=== PATIENT | male | born 1960 | race Caucasian/White ===

== ENCOUNTER 2016-10-15 22:22 | Inpatient (IN) | payer OTHER ==
[~2016-10-15] VITALS: Ht 185.4 cm; Wt 96.5 kg
[~2016-10-15 22:22] MED LIST: AMBIEN5 MG PO; ASPIR-LOW81 MG PO; ASPIRIN EC325 MG PO; ASPIRIN325 MG PO; ATARAX,VISTARIL25 MG PO; AUGMENTIN875 MG PO; Ambien PO; Atarax,Vistaril PO; BACTRIM,SEPT1 TABLET PO; BENTYL10 MG PO; BUSPAR10 MG PO; BUTALB-APAP-CA1 EACH PO; Buspar PO; CARDIZEM CD,CA180 MG PO; CARDIZEM CD120 M1 PO; CARDIZEM CD120 MG PO; CHLORDIAZEPOXID25 MG PO; CITALOPRAM HBR20 M1 G-TUBE; CITALOPRAM HBR20 M1 PO; DAILY VALUE1 EACH PO; DAILY VITE1 EAC1 PO; DECADRON2 MG PO; DESYREL100 MG PO; DICYCLOMINE HCL10 MG PO; ENDOCET 5-3251 EACH PO; FIORICET,ESG1 TABLET PO; FOLIC ACID1 MG PO; GEMFIBROZIL600 MG PO; GLUCOPHAGE1000 MG PO; GLUCOPHAGE500 MG PO; HYDROCODON-ACE1 EAC7 PO; HYDROCODON-ACE1 EAC8 PO; IBUPROFEN800 MG PO; K-DUR20 MEQ PO; KEFLEX500 MG PO; LIBRIUM10 MG PO; LIBRIUM25 MG PO; LISINOPRIL5 MG PO; LITHATE5 MG PO; LITHIUM CARBON300 M1 PO; LITHIUM CARBON300 M2 PO; LO-DOSE ASPIRIN81 M1 PO; LOPID600 MG PO; LOPRESSOR100 M1 PO; LOPRESSOR25 MG PO; LORTAB 5-325 M1 EACH PO; LOVENOX40 MG/0.4 SC; MAXIPIME2 GM IM; METFORMIN HCL1000 MG PO; METOPROLOL SUCC25 MG PO; METOPROLOL SUCC50 MG PO; METOPROLOL TART25 MG PO; NAPROSYN250 MG PO; NAPROSYN500 MG PO; NO HOME MEDS; NOHOMEMEDS; OMEPRAZOLE40 M1 PO; PANTOPRAZOLE SO40 MG PO; PRAVASTATIN SOD40 MG PO; PRILOSEC40 MG PO; PROTONIX40 MG PO; Pepcid PO; RISPERDAL1 MG PO; ROCEPHIN2 GM/50 ML IV; SEROQUEL100 MG PO; SEROQUEL12.5 MG PO; SERTRALINE HCL100 MG PO; SERTRALINE HCL25 MG PO; SERTRALINE HCL50 MG PO; SUCRALFATE1 GM PO; SUCRALFATE1 GM/10 ML PO; THERAGRAN1 TABLET PO; THIAMINE HCL100 MG PO; TRAMADOL HCL50 MG PO; TRAZODONE HCL100 MG PO; TRAZODONE HCL50 MG PO; ULTRAM50 MG PO; VANCOMYCIN1 GM/150 M IV; VITAMIN B-1100 MG PO; ZANTAC150 M1 PO; ZANTAC150 MG PO; ZOFRAN ODT8 MG PO; ZOFRAN8 MG PO; ZOLOFT100 MG PO; ZOLOFT25 MG PO; ZOLPIDEM TARTRAT5 MG PO; celeXA PO
[2016-10-15 23:09] LABS: EOSINOPHIL COUNT 0.1 K/uL (0-0.3); HEMATOCRIT 40.2 % (38.0-50.0); IMMATURE GRANULOCYTE (%) 0.6 % (0.0-0.7); INSTRUMENT ABS NEUTROPHIL CT 1.7 K/uL; LYMPHOCYTE COUNT 2.7 K/uL (1.0-2.8); MCH 30.2 PG (29.0-34.0); MCHC 33.6 G/DL (30.0-36.0); MCV 89.9 FL (86-99); MEAN PLAT.VOLUME 9.1 uM^3 (9.0-12.4); MONOCYTE (%) 15.5 % (3-12); MONOCYTE COUNT 0.8 K/uL (0-0.8); NEUTROPHIL (%) 31.4 % (45-76); NEUTROPHIL COUNT 1.7 K/uL (1.8-6.4); PLATELET COUNT 164 K/uL (156-360); RBC DIS.WIDTH-CV 15.2 % (11.8-14.6); RBC DIS.WIDTH-SD 49.3 % (39-53); RED BLOOD COUNT 4.47 M/uL (4.00-5.50); WHITE BLOOD COUNT 5.2 K/uL (4.1-10.2)
[2016-10-15 23:19] LABS: CHLORIDE 113 mEq/L (99-109); POTASSIUM 3.2 mEq/L (3.7-5.4); SODIUM 149 mEq/L (136-147)
[2016-10-15 23:21] LABS: GLUCOSE 139 mg/dL (70-99)
[2016-10-15 23:22] LABS: ANION GAP 11 MEQ/L (2-14)
[2016-10-15 23:24] LABS: SERUM ETHYL ALCOHOL 464 mg/dL
[2016-10-15 23:25] LABS: GFR ESTIMATE (CALCULATED) > 59 mL/min/
[2016-10-15 23:26] LABS: UREA NITROGEN (BUN) 8 mg/dL (9-23)
[2016-10-16 01:26] LABS: INTER. NORMALIZED RATIO 1.1; PROTHROMBIN TIME 11.5 (9.2-11.2); PTT 26.2 (25-32)
[2016-10-16 03:02] VITALS: BP 179/85
[2016-10-16 03:15] VITALS: BP 142/90
[2016-10-16 08:27] VITALS: BP 137/83
[2016-10-16 12:08] VITALS: BP 143/84
[2016-10-16 16:22] VITALS: BP 152/91
[2016-10-16] MEDS ORDERED: QUETIAPINE FUM100 MG PO (18:55)
[2016-10-16] MEDS ORDERED: SERTRALINE HCL100 MG PO (18:55)
[2016-10-16] MEDS ORDERED: METOPROLOL SUCC50 MG PO (18:56)
[2016-10-16] MEDS ORDERED: ASPIR 8181 M1 PO (18:56)
[2016-10-16 19:54] VITALS: BP 136/69
[2016-10-17 00:22] VITALS: BP 153/82
[2016-10-17 00:40] VITALS: BP 153/82
[2016-10-17 04:47] VITALS: BP 178/95
[2016-10-17 05:22] LABS: MCH 30.1 PG (29.0-34.0); MCHC 33.1 G/DL (30.0-36.0); MCV 90.9 FL (86-99); PLATELET COUNT 169 K/uL (156-360); RBC DIS.WIDTH-CV 14.8 % (11.8-14.6); RBC DIS.WIDTH-SD 49.1 % (39-53); RED BLOOD COUNT 3.96 M/uL (4.00-5.50); WHITE BLOOD COUNT 4.8 K/uL (4.1-10.2)
[2016-10-17 05:49] VITALS: BP 162/90
[2016-10-17 05:52] LABS: ALKALINE PHOSPHATASE 74 IU/L (3-129); ANION GAP 9 MEQ/L (2-14); CHLORIDE 112 MEQ/L (99-109); GFR ESTIMATE (CALCULATED) > 59 mL/min/; POTASSIUM 3.8 MEQ/L (3.7-5.4); SAMPLE HEMOLYSIS CHECK 0; SAMPLE ICTERIC CHECK 0; SAMPLE LIPEMIA CHECK 0; SODIUM 147 MEQ/L (136-147); TOTAL BILIRUBIN 0.5 MG/DL (0.0-1.0); UREA NITROGEN (BUN) 8 mg/dL (9-23)
[2016-10-17 05:59] LABS: GLUCOSE 78 mg/dL (70-99)
[2016-10-17 08:01] VITALS: BP 192/99
[2016-10-17 11:36] VITALS: BP 162/81
== END 2016-10-17 15:14 | disposition home or self-care (01) | DRG 87 ==
LOC: EDOF → EME 22:22 → 3EAST 10-16 01:37 → EDOF 10-16 01:37 → 3EAST 10-16 02:46
PROVIDERS: Emergency Medicine; Surgery
PROC: 0HQ1XZZ Repair Face Skin, External Approach (ICD-10-PCS; principal; 2016-10-16)
DX: S06.6X0A Traumatic subarachnoid hemorrhage without loss of consciousness, initial encounter (principal); S01.81XA Laceration without foreign body of other part of head, initial encounter; W07.XXXA Fall from chair, initial encounter; Y93.9 Activity, unspecified; Y92.9 Unspecified place or not applicable; Y99.8 Other external cause status; F10.129 Alcohol abuse with intoxication, unspecified; Y90.8 Blood alcohol level of 240 mg/100 ml or more; F12.10 Cannabis abuse, uncomplicated; I48.91 Unspecified atrial fibrillation; G31.89 Other specified degenerative diseases of nervous system; I10 Essential (primary) hypertension; F31.9 Bipolar disorder, unspecified; F41.9 Anxiety disorder, unspecified; Z59.0 Homelessness; Z82.49 Family history of ischemic heart disease and other diseases of the circulatory system; F17.200 Nicotine dependence, unspecified, uncomplicated
CPT/HCPCS: 70450; 72125; 73610; 80048; 80053; 85025; 85027; 85610; 85730; 94799; 99281; 99285; G0480; J1630; J2060; J3411; J3475; J7030; J7040; J7120

== ENCOUNTER 2016-12-04 10:05 | Inpatient (IN) | payer OTHER ==
[~2016-12-04] VITALS: Ht 190.5 cm; Wt 87.5 kg
[~2016-12-04 10:05] MED LIST changes: +ASPIR 8181 M1 PO; +QUETIAPINE FUM100 MG PO
[2016-12-04 10:52] LABS: CHLORIDE 71 mEq/L (99-109); POTASSIUM 2.8 mEq/L (3.7-5.4); SODIUM 133 mEq/L (136-147)
[2016-12-04 10:54] LABS: GLUCOSE 164 mg/dL (70-99)
[2016-12-04 10:55] LABS: ANION GAP 42 MEQ/L (2-14)
[2016-12-04 10:57] LABS: HEMATOCRIT 51.1 % (38.0-50.0); MCH 31.7 PG (29.0-34.0); MCHC 35.4 G/DL (30.0-36.0); MCV 89.5 FL (86-99); MEAN PLAT.VOLUME 11.2 uM^3 (9.0-12.4); NRBC (%) 0.1 /100 WBC (0-0); PLATELET COUNT 150 K/uL (156-360); RBC DIS.WIDTH-CV 14.1 % (11.8-14.6); RBC DIS.WIDTH-SD 46.2 % (39-53); RED BLOOD COUNT 5.71 M/uL (4.00-5.50); WHITE BLOOD COUNT 23.3 K/uL (4.1-10.2)
[2016-12-04 10:58] LABS: GFR ESTIMATE (CALCULATED) 37 mL/min/; UREA NITROGEN (BUN) 25 mg/dL (9-23)
[2016-12-04 11:06] LABS: TROP-I INTERPRETATION NEGATIVE; TROPONIN-I 0.04 ng/mL (0.0-0.30)
[2016-12-04] MEDS ORDERED: PROTONIX40 MG PO (12:12)
[2016-12-04] MEDS ORDERED: LO-DOSE ASPIRIN81 M2 PO (12:12)
[2016-12-04] MEDS ORDERED: VITAMIN B-1100 MG PO (12:12)
[2016-12-04] MEDS ORDERED: CARDIZEM CD,CA180 MG PO (12:12)
[2016-12-04] MEDS ORDERED: FOLIC ACID1 MG PO (12:12)
[2016-12-04] MEDS ORDERED: LIPITOR40 MG PO (12:13)
[2016-12-04] MEDS ORDERED: DAILY VALUE1 EACH PO (12:13)
[2016-12-04 13:19] LABS: MAGNESIUM 1.5 mg/dL (1.3-2.7)
[2016-12-04 13:23] LABS: SERUM ETHYL ALCOHOL < 10 mg/dL
[2016-12-04 13:30] VITALS: BP 136/80
[2016-12-04 13:33] LABS: TROP-I INTERPRETATION NEGATIVE; TROPONIN-I 0.03 ng/mL (0.0-0.30)
[2016-12-04 16:22] VITALS: BP 135/78
[2016-12-04 19:19] VITALS: BP 131/69
[2016-12-04 21:08] LABS: HEMATOCRIT 41.6 % (38.0-50.0); MCV 92.2 FL (86-99)
[2016-12-04 21:22] LABS: TROP-I INTERPRETATION NEGATIVE; TROPONIN-I 0.04 ng/mL (0.0-0.30)
[2016-12-04 23:24] VITALS: BP 118/68
[2016-12-05 04:10] VITALS: BP 134/77
[2016-12-05 06:05] LABS: HEMATOCRIT 39.2 % (38.0-50.0); MCH 33.3 PG (29.0-34.0); MCHC 35.5 G/DL (30.0-36.0); MCV 93.8 FL (86-99); RBC DIS.WIDTH-SD 48.2 % (39-53); WHITE BLOOD COUNT 11.6 K/uL (4.1-10.2)
[2016-12-05 06:10] LABS: RED BLOOD COUNT 4.18 M/uL (4.00-5.50)
[2016-12-05 06:18] LABS: ALKALINE PHOSPHATASE 55 IU/L (3-129); ANION GAP 15 MEQ/L (2-14); CHLORIDE 95 MEQ/L (99-109); POTASSIUM 2.9 MEQ/L (3.7-5.4); SAMPLE HEMOLYSIS CHECK 0; SAMPLE ICTERIC CHECK 0; SAMPLE LIPEMIA CHECK 0; SODIUM 138 MEQ/L (136-147); TOTAL BILIRUBIN 1.6 MG/DL (0.0-1.0); UREA NITROGEN (BUN) 12 mg/dL (9-23)
[2016-12-05 06:20] LABS: GFR ESTIMATE (CALCULATED) > 59 mL/min/; GLUCOSE 110 mg/dL (70-99)
[2016-12-05 07:19] LABS: MEAN PLAT.VOLUME 11.2 uM^3 (9.0-12.4); PLAT.SUFFICIENCY DECREASED; PLATELET COUNT 68 K/uL (156-360)
[2016-12-05 07:52] VITALS: BP 120/65
[2016-12-05 09:22] LABS: HEMATOCRIT 39.4 % (38.0-50.0); MCV 93.1 FL (86-99)
[2016-12-05 11:34] VITALS: BP 129/78
[2016-12-05 17:23] VITALS: BP 140/78
[2016-12-05 19:08] VITALS: BP 135/79
[2016-12-06] VITALS (7 sets, daily range): BP systolic 132–163; BP diastolic 62–98
[2016-12-06 05:37] LABS: ANION GAP 8 MEQ/L (2-14); CHLORIDE 101 MEQ/L (99-109); GFR ESTIMATE (CALCULATED) > 59 mL/min/; GLUCOSE 121 mg/dL (70-99); POTASSIUM 2.8 MEQ/L (3.7-5.4); SAMPLE HEMOLYSIS CHECK 0; SAMPLE ICTERIC CHECK 0; SAMPLE LIPEMIA CHECK 0; SODIUM 141 MEQ/L (136-147); UREA NITROGEN (BUN) 6 mg/dL (9-23)
[2016-12-06 06:30] LABS: EOSINOPHIL (%) 0.6 % (0-5); HEMATOCRIT 36.5 % (38.0-50.0); IMMATURE GRANULOCYTE (%) 0.4 % (0.0-0.7); LYMPHOCYTE COUNT 1.7 K/uL (1.0-2.8); MCH 31.4 PG (29.0-34.0); MCV 92.4 FL (86-99); MEAN PLAT.VOLUME 10.8 uM^3 (9.0-12.4); MONOCYTE (%) 5.7 % (3-12); MONOCYTE COUNT 0.4 K/uL (0-0.8); NEUTROPHIL (%) 69.3 % (45-76); PLATELET COUNT 75 K/uL (156-360); RBC DIS.WIDTH-CV 13.7 % (11.8-14.6); RBC DIS.WIDTH-SD 46.5 % (39-53); RED BLOOD COUNT 3.95 M/uL (4.00-5.50); WHITE BLOOD COUNT 7.2 K/uL (4.1-10.2)
[2016-12-07 00:10] VITALS: BP 141/86
[2016-12-07 05:19] VITALS: BP 130/71
[2016-12-07 05:55] LABS: EOSINOPHIL (%) 1.7 % (0-5); EOSINOPHIL COUNT 0.1 K/uL (0-0.3); HEMATOCRIT 39.2 % (38.0-50.0); IMMATURE GRANULOCYTE (%) 0.5 % (0.0-0.7); INSTRUMENT ABS NEUTROPHIL CT 3.8 K/uL; LYMPHOCYTE COUNT 2.1 K/uL (1.0-2.8); MCHC 33.4 G/DL (30.0-36.0); MCV 92.9 FL (86-99); MEAN PLAT.VOLUME 10.9 uM^3 (9.0-12.4); MONOCYTE (%) 9.2 % (3-12); MONOCYTE COUNT 0.6 K/uL (0-0.8); NEUTROPHIL (%) 57.4 % (45-76); NEUTROPHIL COUNT 3.8 K/uL (1.8-6.4); PLATELET COUNT 96 K/uL (156-360); RBC DIS.WIDTH-CV 13.7 % (11.8-14.6); RBC DIS.WIDTH-SD 46.3 % (39-53); RED BLOOD COUNT 4.22 M/uL (4.00-5.50); WHITE BLOOD COUNT 6.6 K/uL (4.1-10.2)
[2016-12-07 06:29] LABS: ANION GAP 9 MEQ/L (2-14); CHLORIDE 99 MEQ/L (99-109); GFR ESTIMATE (CALCULATED) > 59 mL/min/; GLUCOSE 126 mg/dL (70-99); POTASSIUM 3.7 MEQ/L (3.7-5.4); SAMPLE HEMOLYSIS CHECK 0; SAMPLE ICTERIC CHECK 0; SAMPLE LIPEMIA CHECK 0; SODIUM 138 MEQ/L (136-147); UREA NITROGEN (BUN) 6 mg/dL (9-23)
[2016-12-07 07:00] VITALS: BP 112/65
[2016-12-07 10:02] LABS: MAGNESIUM 1.3 mg/dl (1.3-2.7)
[2016-12-07 12:28] LABS: POINT-OF-CARE USER ID ENVKC36
[2016-12-07 13:23] VITALS: BP 155/87
[2016-12-07 15:51] LABS: POINT-OF-CARE METER ID UU13113698
[2016-12-07 17:29] VITALS: BP 121/81
[2016-12-07 20:28] LABS: POINT-OF-CARE METER ID UU13113698
[2016-12-07 20:59] VITALS: BP 118/78
[2016-12-08 00:42] VITALS: BP 110/69
[2016-12-08 06:11] LABS: EOSINOPHIL (%) 2.3 % (0-5); EOSINOPHIL COUNT 0.1 K/uL (0-0.3); HEMATOCRIT 41.2 % (38.0-50.0); IMMATURE GRANULOCYTE (%) 0.2 % (0.0-0.7); INSTRUMENT ABS NEUTROPHIL CT 2.8 K/uL; LYMPHOCYTE COUNT 1.6 K/uL (1.0-2.8); MCH 31.8 PG (29.0-34.0); MCV 93.6 FL (86-99); MEAN PLAT.VOLUME 10.6 uM^3 (9.0-12.4); MONOCYTE (%) 11.1 % (3-12); MONOCYTE COUNT 0.6 K/uL (0-0.8); NEUTROPHIL (%) 54.9 % (45-76); NEUTROPHIL COUNT 2.8 K/uL (1.8-6.4); RBC DIS.WIDTH-CV 13.9 % (11.8-14.6); RBC DIS.WIDTH-SD 47.8 % (39-53); WHITE BLOOD COUNT 5.2 K/uL (4.1-10.2)
[2016-12-08 06:25] LABS: PLATELET COUNT 131 K/uL (156-360)
[2016-12-08 06:43] LABS: ALKALINE PHOSPHATASE 55 IU/L (3-129); ANION GAP 8 MEQ/L (2-14); CHLORIDE 103 MEQ/L (99-109); GFR ESTIMATE (CALCULATED) > 59 mL/min/; GLUCOSE 135 mg/dL (70-99); SAMPLE HEMOLYSIS CHECK 0; SAMPLE ICTERIC CHECK 0; SAMPLE LIPEMIA CHECK 0; SODIUM 137 MEQ/L (136-147); UREA NITROGEN (BUN) 8 mg/dL (9-23)
[2016-12-08 06:46] LABS: TOTAL BILIRUBIN 0.6 MG/DL (0.0-1.0)
[2016-12-08 06:49] LABS: Estimated Average Glucose 111 mg/dL (70-123); HEMOGLOBIN A1c (GLYCOHEMOGLOB) 5.5 % HGB (Below 5.7)
[2016-12-08 07:00] VITALS: BP 129/88
[2016-12-08 07:46] LABS: POINT-OF-CARE METER ID UU13113781
== END 2016-12-08 09:30 | disposition home or self-care (01) | DRG 309 ==
LOC: EME 10:05 → EDOF 11:32 → 4EAST 11:32
PROVIDERS: Emergency Medicine; Hospitalist; Internal Medicine
DX: I48.0 Paroxysmal atrial fibrillation (principal); E86.0 Dehydration; N17.9 Acute kidney failure, unspecified; E87.6 Hypokalemia; E87.1 Hypo-osmolality and hyponatremia; F10.20 Alcohol dependence, uncomplicated; I10 Essential (primary) hypertension; I25.10 Atherosclerotic heart disease of native coronary artery without angina pectoris; D69.6 Thrombocytopenia, unspecified; E78.5 Hyperlipidemia, unspecified; E78.00 Pure hypercholesterolemia, unspecified; E11.9 Type 2 diabetes mellitus without complications; R29.6 Repeated falls; G89.29 Other chronic pain; F17.200 Nicotine dependence, unspecified, uncomplicated; Z91.14 Patient's other noncompliance with medication regimen; Z59.0 Homelessness; B18.2 Chronic viral hepatitis C; I35.0 Nonrheumatic aortic (valve) stenosis; K92.2 Gastrointestinal hemorrhage, unspecified
CPT/HCPCS: 70450; 71010; 80048; 80053; 81003; 82948; 83036; 83605; 83735; 84443; 84484; 85014; 85018; 85025; 85027; 87040; 93005; 93306; 99281; 99285; C9113; G0480; J1815; J2060; J2405; J2765; J3411; J3475; J7030; J7050

== ENCOUNTER 2017-01-01 23:45 | Emergency (ER) | payer OTHER ==
[~2017-01-01] VITALS: Ht 190.5 cm; Wt 90.0 kg
[~2017-01-01 23:45] MED LIST changes: +LIPITOR40 MG PO; +LO-DOSE ASPIRIN81 M2 PO
[2017-01-02 00:09] VITALS: BP 167/115
== END 2017-01-02 00:11 ==
LOC: EME 23:45
DX: F10.129 Alcohol abuse with intoxication, unspecified (principal); K21.9 Gastro-esophageal reflux disease without esophagitis; J45.909 Unspecified asthma, uncomplicated; I10 Essential (primary) hypertension; E78.5 Hyperlipidemia, unspecified; Z79.82 Long term (current) use of aspirin; Z87.891 Personal history of nicotine dependence
CPT/HCPCS: 99281; 99282

== ENCOUNTER 2017-02-02 22:34 | Emergency (ER) | payer OTHER ==
[~2017-02-02] VITALS: Ht 190.5 cm; Wt 85.6 kg
[2017-02-03 05:20] LABS: POINT-OF-CARE METER ID UU14100415
[2017-02-03 10:58] VITALS: BP 142/98
== END 2017-02-03 10:58 | disposition home or self-care (01) ==
LOC: EME 22:34
DX: F10.129 Alcohol abuse with intoxication, unspecified (principal); Y90.8 Blood alcohol level of 240 mg/100 ml or more; R45.851 Suicidal ideations; S09.90XA Unspecified injury of head, initial encounter; W19.XXXA Unspecified fall, initial encounter; B19.20 Unspecified viral hepatitis C without hepatic coma; K21.9 Gastro-esophageal reflux disease without esophagitis; I10 Essential (primary) hypertension; E78.5 Hyperlipidemia, unspecified; J45.909 Unspecified asthma, uncomplicated; Z79.82 Long term (current) use of aspirin; Z87.891 Personal history of nicotine dependence
CPT/HCPCS: 70450; 82948; 99281; 99285; G0480

== ENCOUNTER 2017-03-02 11:18 | Emergency (ER) | payer OTHER ==
[~2017-03-02] VITALS: Ht 190.5 cm; Wt 89.0 kg
[2017-03-02 12:17] LABS: HEMATOCRIT 47.9 % (38.0-50.0); MCH 31.6 PG (29.0-34.0); MCHC 34.2 G/DL (30.0-36.0); MCV 92.3 FL (86-99); MEAN PLAT.VOLUME 9.5 uM^3 (9.0-12.4); PLATELET COUNT 226 K/uL (156-360); RBC DIS.WIDTH-CV 14.8 % (11.8-14.6); RBC DIS.WIDTH-SD 50.8 % (39-53); RED BLOOD COUNT 5.19 M/uL (4.00-5.50); WHITE BLOOD COUNT 9.1 K/uL (4.1-10.2)
[2017-03-02 12:29] LABS: CHLORIDE 106 mEq/L (99-109); POTASSIUM 4.1 mEq/L (3.7-5.4); SODIUM 144 mEq/L (136-147)
[2017-03-02 12:31] LABS: GLUCOSE 143 mg/dL (70-99)
[2017-03-02 12:32] LABS: ANION GAP 18 MEQ/L (2-14)
[2017-03-02 12:33] LABS: TOTAL BILIRUBIN 0.8 mg/dL (0.0-1.0)
[2017-03-02 12:34] LABS: SERUM ETHYL ALCOHOL 370 mg/dL
[2017-03-02 12:35] LABS: ALKALINE PHOSPHATASE 81 IU/L (3-129); GFR ESTIMATE (CALCULATED) > 59 mL/min/
[2017-03-02 12:37] LABS: UREA NITROGEN (BUN) 7 mg/dL (9-23)
[2017-03-02 12:38] LABS: SALICYLATE < 5.0 MG/DL (15-30)
[2017-03-02 13:15] LABS: AMPHETAMINE NEGATIVE (500 ng/mL); BARBITURATES NEGATIVE (200 ng/mL); BENZODIAZEPINES NEGATIVE (150 ng/mL); COCAINE NEGATIVE (150 ng/mL); METHADONE NEGATIVE (200 ng/mL); METHAMPHETAMINE NEGATIVE (500 ng/mL); OPIATES (MORPHINE) NEGATIVE (100 ng/mL); OXYCODONE NEGATIVE (100 ng/mL); PHENCYCLIDINE NEGATIVE (25 ng/mL); PROPOXYPHENE NEGATIVE (300 ng/mL); THC CANNABINOIDS NEGATIVE (50 ng/mL); TRICYCLIC ANTIDEPRESSANTS NEGATIVE (300 ng/mL)
[2017-03-02 13:16] LABS: INTERNAL CONTROLS VALID? YES
[2017-03-02 19:38] VITALS: BP 150/99
== END 2017-03-02 19:40 | disposition home or self-care (01) ==
LOC: EME 11:18
PROVIDERS: Emergency Medicine
DX: F10.129 Alcohol abuse with intoxication, unspecified (principal); Y90.8 Blood alcohol level of 240 mg/100 ml or more; F32.9 Major depressive disorder, single episode, unspecified; R45.851 Suicidal ideations; K21.9 Gastro-esophageal reflux disease without esophagitis; J45.909 Unspecified asthma, uncomplicated; I10 Essential (primary) hypertension; E78.5 Hyperlipidemia, unspecified; F31.9 Bipolar disorder, unspecified; F41.9 Anxiety disorder, unspecified; B19.20 Unspecified viral hepatitis C without hepatic coma; Z87.891 Personal history of nicotine dependence; Z79.82 Long term (current) use of aspirin
CPT/HCPCS: 80053; 85027; 99281; 99285; G0480

== ENCOUNTER 2017-03-13 17:27 | Inpatient (IN) | payer OTHER ==
[~2017-03-13] VITALS: Ht 190.5 cm; Wt 99.9 kg
[2017-03-13 17:58] LABS: CREATININE 0.9 mg/dL (0.6-1.3); POTASSIUM 2.7 mEq/L (3.7-5.4)
[2017-03-13 18:03] LABS: HEMATOCRIT 38.6 % (38.0-50.0); MCH 32.2 PG (29.0-34.0); MCV 89.4 FL (86-99); MEAN PLAT.VOLUME 9.6 uM^3 (9.0-12.4); RBC DIS.WIDTH-CV 14.2 % (11.8-14.6); RBC DIS.WIDTH-SD 45.4 % (39-53); RED BLOOD COUNT 4.32 M/uL (4.00-5.50); WHITE BLOOD COUNT 21.7 K/uL (4.1-10.2)
[2017-03-13 18:04] LABS: PLATELET COUNT 299 K/uL (156-360)
[2017-03-13 18:05] LABS: CHLORIDE 80 mEq/L (99-109); SODIUM 132 mEq/L (136-147)
[2017-03-13 18:07] LABS: GLUCOSE 213 mg/dL (70-99)
[2017-03-13 18:08] LABS: ANION GAP 25 MEQ/L (2-14)
[2017-03-13 18:09] LABS: TOTAL BILIRUBIN 1.6 mg/dL (0.0-1.0)
[2017-03-13 18:10] LABS: SERUM ETHYL ALCOHOL 47 mg/dL
[2017-03-13 18:11] LABS: ALKALINE PHOSPHATASE 86 IU/L (3-129); GFR ESTIMATE (CALCULATED) > 59 mL/min/
[2017-03-13 18:12] LABS: UREA NITROGEN (BUN) 33 mg/dL (9-23)
[2017-03-13 18:14] LABS: CREATINE KINASE 341 IU/L (1-294)
[2017-03-13 18:30] LABS: AMPHETAMINE NEGATIVE (500 ng/mL); BARBITURATES NEGATIVE (200 ng/mL); BENZODIAZEPINES NEGATIVE (150 ng/mL); COCAINE NEGATIVE (150 ng/mL); INTERNAL CONTROLS VALID? YES; METHADONE NEGATIVE (200 ng/mL); METHAMPHETAMINE NEGATIVE (500 ng/mL); OPIATES (MORPHINE) NEGATIVE (100 ng/mL); OXYCODONE NEGATIVE (100 ng/mL); PHENCYCLIDINE NEGATIVE (25 ng/mL); PROPOXYPHENE NEGATIVE (300 ng/mL); THC CANNABINOIDS NEGATIVE (50 ng/mL); TRICYCLIC ANTIDEPRESSANTS NEGATIVE (300 ng/mL)
[2017-03-13 18:35] LABS: ADD MIUA? YES; BILIRUBIN NEGATIVE; BLOOD MODERATE; COLOR AMBER ((YELLOW)); GLUCOSE (STRIP) >=500; KETONES 20; LEUKOCYTES NEGATIVE; NITRITE NEGATIVE; PROTEIN (STRIP) 100; SPECIFIC GRAVITY 1.021 (1.000-1.030)
[2017-03-13 18:45] LABS: BACTERIA NONE SEEN /HPF; EPITHELIAL CELLS NONE SEEN /HPF; HYALINE CASTS 0-5 /LPF; MUCUS TRACE /LPF; RED BLOOD CELLS 0-5 /HPF (0-5); UCUL ADDED? NO; WHITE BLOOD CELLS 0-5 /HPF (0-5)
[2017-03-13] MEDS ORDERED: NALTREXONE HCL50 MG PO (21:10)
[2017-03-13 22:01] LABS: POINT-OF-CARE METER ID UU13113747
[2017-03-14] VITALS (10 sets, daily range): BP systolic 80–115; BP diastolic 50–83
[2017-03-14 00:44] LABS: MAGNESIUM 1.5 mg/dL (1.3-2.7)
[2017-03-14 06:15] LABS: HEMATOCRIT 27.7 % (38.0-50.0); MCH 32.5 PG (29.0-34.0); MCHC 35.7 G/DL (30.0-36.0); MCV 90.8 FL (86-99); MEAN PLAT.VOLUME 9.5 uM^3 (9.0-12.4); NRBC (%) 0.1 /100 WBC (0-0); PLATELET COUNT 239 K/uL (156-360); RBC DIS.WIDTH-CV 14.5 % (11.8-14.6); RBC DIS.WIDTH-SD 47.6 % (39-53); RED BLOOD COUNT 3.05 M/uL (4.00-5.50); WHITE BLOOD COUNT 18.5 K/uL (4.1-10.2)
[2017-03-14 06:37] LABS: ANION GAP 10 MEQ/L (2-14); CHLORIDE 94 MEQ/L (99-109); GFR ESTIMATE (CALCULATED) > 59 mL/min/; GLUCOSE 193 mg/dL (70-99); POTASSIUM 2.8 MEQ/L (3.7-5.4); SAMPLE HEMOLYSIS CHECK 0; SAMPLE ICTERIC CHECK 0; SAMPLE LIPEMIA CHECK 0; SODIUM 134 MEQ/L (136-147); UREA NITROGEN (BUN) 22 mg/dL (9-23)
[2017-03-14 06:48] LABS: ABS NEUTROPHIL COUNT 16.1; ACANTHOCYTES 1+; ANISOCYTOSIS 1+; ATYPICAL LYMPHOCYTE 0.8 %; BAND NEUTROPHILS 20.7 % (0-8.0); BURR CELLS 2+; EOSINOPHIL ABS CT 0; INSTRUMENT ABS NEUTROPHIL CT 15.8 K/uL; LYMPHOCYTES 8.6 % (15.0-45.0); METAMYELOCYTES 0.9 %; MICROCYTOSIS 2+; PLAT.SUFFICIENCY ADEQUATE; POIKILOCYTOSIS 3+; POLYCHROMASIA 1+; SEG.NEUTROPHILS 66.4 % (46.0-76.0)
[2017-03-14 20:43] LABS: MAGNESIUM 1.6 mg/dl (1.3-2.7)
[2017-03-14 21:18] LABS: POINT-OF-CARE METER ID UU13113717
[2017-03-15 03:50] VITALS: BP 149/71
[2017-03-15 08:06] VITALS: BP 124/84
[2017-03-15] MEDS ORDERED: ASPIR 8181 M1 PO (11:44)
[2017-03-15 11:52] LABS: INTERNAL CONTROL VALID? YES
[2017-03-15 11:57] VITALS: BP 130/80
[2017-03-15 12:11] LABS: HEMATOCRIT 25.3 % (38.0-50.0); MCH 31.8 PG (29.0-34.0); MCHC 34.4 G/DL (30.0-36.0); MCV 92.3 FL (86-99); MEAN PLAT.VOLUME 9.9 uM^3 (9.0-12.4); PLATELET COUNT 263 K/uL (156-360); RBC DIS.WIDTH-SD 50.6 % (39-53); RED BLOOD COUNT 2.74 M/uL (4.00-5.50)
[2017-03-15 12:26] LABS: CHLORIDE 104 mEq/L (99-109); POTASSIUM 3.3 mEq/L (3.7-5.4); SODIUM 139 mEq/L (136-147)
[2017-03-15 12:27] LABS: GLUCOSE 144 mg/dL (70-99)
[2017-03-15 12:29] LABS: ANION GAP 15 MEQ/L (2-14)
[2017-03-15 12:31] LABS: GFR ESTIMATE (CALCULATED) > 59 mL/min/
[2017-03-15 12:32] LABS: UREA NITROGEN (BUN) 14 mg/dL (9-23)
[2017-03-15] MEDS ORDERED: VITAMIN B-1100 MG PO (13:15)
[2017-03-15] MEDS ORDERED: LIPITOR40 MG PO (13:15)
[2017-03-15] MEDS ORDERED: CARDIZEM CD180 MG PO (13:15)
[2017-03-15] MEDS ORDERED: LATUDA40 MG PO (13:16)
[2017-03-15] MEDS ORDERED: TOPROL XL50 MG PO (13:16)
[2017-03-15] MEDS ORDERED: ONE DAILY1 EAC3 PO (13:16)
[2017-03-15] MEDS ORDERED: PROTONIX40 MG PO (13:17)
[2017-03-15] MEDS ORDERED: ZOLOFT50 MG PO (13:17)
[2017-03-15] MEDS ORDERED: SEROQUEL XR50 MG PO (13:17)
[2017-03-15 13:31] LABS: POINT-OF-CARE METER ID UU14188625
[2017-03-15 15:50] VITALS: BP 122/82
[2017-03-15 17:28] LABS: POINT-OF-CARE METER ID UU14188625
[2017-03-15 20:09] VITALS: BP 148/72
[2017-03-15 22:01] LABS: POINT-OF-CARE METER ID UU14188625
[2017-03-15 23:49] LABS: POINT-OF-CARE METER ID UU13113675
[2017-03-16] VITALS (20 sets, daily range): BP systolic 128–186; BP diastolic 68–96
[2017-03-16 01:05] LABS: HEMATOCRIT 24.9 % (38.0-50.0); MCV 93.6 FL (86-99)
[2017-03-16 02:21] LABS: METH RESISTANT S AUREUS PCR POSITIVE (NEGATIVE)
[2017-03-16 02:26] LABS: PROBE CHECK PASS
[2017-03-16 04:29] LABS: POINT-OF-CARE METER ID UU13113748
[2017-03-16 06:25] LABS: HEMATOCRIT 24.3 % (38.0-50.0); MCH 31.5 PG (29.0-34.0); MCHC 32.9 G/DL (30.0-36.0); MCV 95.7 FL (86-99); MEAN PLAT.VOLUME 9.3 uM^3 (9.0-12.4); PLATELET COUNT 312 K/uL (156-360); RBC DIS.WIDTH-CV 15.3 % (11.8-14.6); RBC DIS.WIDTH-SD 53.5 % (39-53); RED BLOOD COUNT 2.54 M/uL (4.00-5.50); WHITE BLOOD COUNT 13.2 K/uL (4.1-10.2)
[2017-03-16 06:47] LABS: ANION GAP 13 MEQ/L (2-14); GFR ESTIMATE (CALCULATED) > 59 mL/min/; GLUCOSE 205 mg/dL (70-99); POTASSIUM 3.4 MEQ/L (3.7-5.4); SAMPLE HEMOLYSIS CHECK 0; SAMPLE ICTERIC CHECK 0; SAMPLE LIPEMIA CHECK 0; SODIUM 144 MEQ/L (136-147); UREA NITROGEN (BUN) 15 mg/dL (9-23)
[2017-03-16 06:55] LABS: CHLORIDE 106 MEQ/L (99-109)
[2017-03-16 09:18] LABS: POINT-OF-CARE METER ID UU13113748
[2017-03-16 12:11] LABS: POINT-OF-CARE METER ID UU13113748
[2017-03-16 16:21] LABS: POINT-OF-CARE METER ID UU14174216
[2017-03-16 19:55] LABS: HEMATOCRIT 26.7 % (38.0-50.0)
[2017-03-16 21:20] LABS: POINT-OF-CARE METER ID UU14174216
[2017-03-17] VITALS (7 sets, daily range): BP systolic 132–165; BP diastolic 69–88
[2017-03-17 00:45] LABS: HEMATOCRIT 28.5 % (38.0-50.0); MCV 91.1 FL (86-99)
[2017-03-17 06:03] LABS: HEMATOCRIT 30.2 % (38.0-50.0); MCH 30.5 PG (29.0-34.0); MCHC 32.8 G/DL (30.0-36.0); MCV 92.9 FL (86-99); MEAN PLAT.VOLUME 9.5 uM^3 (9.0-12.4); PLATELET COUNT 363 K/uL (156-360); RBC DIS.WIDTH-CV 16.5 % (11.8-14.6); RBC DIS.WIDTH-SD 55.7 % (39-53)
[2017-03-17 06:04] LABS: RED BLOOD COUNT 3.25 M/uL (4.00-5.50)
[2017-03-17 07:46] LABS: POINT-OF-CARE METER ID UU13113781
[2017-03-17 10:12] LABS: HEMATOCRIT 27.7 % (38.0-50.0); MCV 92.6 FL (86-99)
[2017-03-17 10:45] LABS: ANION GAP 14 MEQ/L (2-14); CHLORIDE 111 MEQ/L (99-109); GLUCOSE 209 mg/dL (70-99); POTASSIUM 3.4 MEQ/L (3.7-5.4); SAMPLE HEMOLYSIS CHECK 0; SAMPLE ICTERIC CHECK 0; SAMPLE LIPEMIA CHECK 0; SODIUM 146 MEQ/L (136-147); UREA NITROGEN (BUN) 20 mg/dL (9-23)
[2017-03-17 10:46] LABS: GFR ESTIMATE (CALCULATED) 44 mL/min/; VANCOMYCIN, TROUGH 33.5 MCG/ML (10-20)
[2017-03-17 11:33] LABS: POINT-OF-CARE METER ID UU13113781
[2017-03-17 16:19] LABS: POINT-OF-CARE METER ID UU14174216
[2017-03-18 04:56] VITALS: BP 134/70
[2017-03-18 05:48] LABS: HEMATOCRIT 29.5 % (38.0-50.0); MCH 30.6 PG (29.0-34.0); MCHC 32.9 G/DL (30.0-36.0); MCV 93.1 FL (86-99); MEAN PLAT.VOLUME 9.3 uM^3 (9.0-12.4); PLATELET COUNT 391 K/uL (156-360); RBC DIS.WIDTH-CV 16.5 % (11.8-14.6); RBC DIS.WIDTH-SD 56.2 % (39-53); RED BLOOD COUNT 3.17 M/uL (4.00-5.50); WHITE BLOOD COUNT 7.5 K/uL (4.1-10.2)
[2017-03-18 06:33] LABS: ANION GAP 9 MEQ/L (2-14); CHLORIDE 111 MEQ/L (99-109); GFR ESTIMATE (CALCULATED) 37 mL/min/; POTASSIUM 3.6 MEQ/L (3.7-5.4); SAMPLE HEMOLYSIS CHECK 0; SAMPLE ICTERIC CHECK 0; SAMPLE LIPEMIA CHECK 0; SODIUM 144 MEQ/L (136-147); UREA NITROGEN (BUN) 19 mg/dL (9-23); VANCOMYCIN, TROUGH 26.2 MCG/ML (10-20)
[2017-03-18 06:36] LABS: GLUCOSE 105 mg/dL (70-99)
[2017-03-18 07:45] LABS: POINT-OF-CARE METER ID UU13113781
[2017-03-18 08:17] LABS: MAGNESIUM 1.1 mg/dl (1.3-2.7)
[2017-03-18 08:45] VITALS: BP 119/75
[2017-03-18 11:48] LABS: POINT-OF-CARE METER ID UU13113781
[2017-03-18 12:46] VITALS: BP 106/69
[2017-03-18 15:45] VITALS: BP 108/63
[2017-03-18 16:25] LABS: POINT-OF-CARE METER ID UU13113781
[2017-03-18 17:18] LABS: UR CREATININE CONCENTRATION 50.9 MG/DL
[2017-03-18 17:46] VITALS: BP 137/64
[2017-03-18 22:22] LABS: POINT-OF-CARE METER ID UU14188577
[2017-03-18 23:37] VITALS: BP 140/73
[2017-03-19 03:44] VITALS: BP 144/85
[2017-03-19 07:11] LABS: ANION GAP 10 MEQ/L (2-14); CHLORIDE 112 MEQ/L (99-109); GFR ESTIMATE (CALCULATED) 31 mL/min/; GLUCOSE 120 mg/dL (70-99); POTASSIUM 4.2 MEQ/L (3.7-5.4); SAMPLE HEMOLYSIS CHECK 0; SAMPLE ICTERIC CHECK 0; SAMPLE LIPEMIA CHECK 0; SODIUM 145 MEQ/L (136-147); UREA NITROGEN (BUN) 20 mg/dL (9-23); VANCOMYCIN, TROUGH 21.8 MCG/ML (10-20)
[2017-03-19 07:17] LABS: MAGNESIUM 1.6 mg/dl (1.3-2.7)
[2017-03-19 07:19] LABS: C3 COMPLEMENT 116 MG/DL (58-170); C4 COMPLEMENT 25 MG/DL (10-40)
[2017-03-19 07:28] LABS: POINT-OF-CARE METER ID UU14188577
[2017-03-19 08:13] VITALS: BP 122/76
[2017-03-19 09:16] LABS: HEMATOCRIT 28.3 % (38.0-50.0); MCH 31.2 PG (29.0-34.0); MCHC 32.9 G/DL (30.0-36.0); MEAN PLAT.VOLUME 9.5 uM^3 (9.0-12.4); PLATELET COUNT 445 K/uL (156-360); RBC DIS.WIDTH-CV 16.5 % (11.8-14.6); RED BLOOD COUNT 2.98 M/uL (4.00-5.50); WHITE BLOOD COUNT 6.8 K/uL (4.1-10.2)
[2017-03-19 12:10] LABS: POINT-OF-CARE METER ID UU14208753
[2017-03-19 16:08] VITALS: BP 112/74
[2017-03-19 20:02] VITALS: BP 139/69
[2017-03-19 21:43] LABS: POINT-OF-CARE METER ID UU14208753
[2017-03-19 23:41] VITALS: BP 174/79
[2017-03-20] VITALS (7 sets, daily range): BP systolic 122–210; BP diastolic 66–94
[2017-03-20 06:22] LABS: POINT-OF-CARE METER ID UU14117124
[2017-03-20 07:25] LABS: HEMATOCRIT 28.9 % (38.0-50.0); MCH 31.9 PG (29.0-34.0); MCHC 32.9 G/DL (30.0-36.0); MEAN PLAT.VOLUME 9.3 uM^3 (9.0-12.4); PLATELET COUNT 480 K/uL (156-360); RBC DIS.WIDTH-CV 16.5 % (11.8-14.6); RBC DIS.WIDTH-SD 58.1 % (39-53); RED BLOOD COUNT 2.98 M/uL (4.00-5.50); WHITE BLOOD COUNT 6.3 K/uL (4.1-10.2)
[2017-03-20 07:47] LABS: ANION GAP 7 MEQ/L (2-14); CHLORIDE 114 MEQ/L (99-109); GFR ESTIMATE (CALCULATED) 30 mL/min/; GLUCOSE 98 mg/dL (70-99); MAGNESIUM 1.6 mg/dl (1.3-2.7); POTASSIUM 4.3 MEQ/L (3.7-5.4); SAMPLE HEMOLYSIS CHECK 0; SAMPLE ICTERIC CHECK 0; SAMPLE LIPEMIA CHECK 0; SODIUM 148 MEQ/L (136-147); UREA NITROGEN (BUN) 20 mg/dL (9-23)
[2017-03-20 12:33] LABS: POINT-OF-CARE METER ID UU14117124
[2017-03-20 16:55] LABS: POINT-OF-CARE METER ID UU14117124
[2017-03-21 00:15] VITALS: BP 124/79
[2017-03-21 04:08] VITALS: BP 146/78
[2017-03-21 06:24] LABS: POINT-OF-CARE METER ID UU14117124
[2017-03-21 07:08] LABS: HEMATOCRIT 27.8 % (38.0-50.0); MCH 31.5 PG (29.0-34.0); MCHC 32.7 G/DL (30.0-36.0); MCV 96.2 FL (86-99); MEAN PLAT.VOLUME 9.3 uM^3 (9.0-12.4); PLATELET COUNT 477 K/uL (156-360); RBC DIS.WIDTH-SD 56.7 % (39-53); RED BLOOD COUNT 2.89 M/uL (4.00-5.50); WHITE BLOOD COUNT 6.4 K/uL (4.1-10.2)
[2017-03-21 07:28] LABS: CHLORIDE 111 MEQ/L (99-109); CHLORIDE 112 MEQ/L (99-109); POTASSIUM 4.2 MEQ/L (3.7-5.4); SODIUM 145 MEQ/L (136-147)
[2017-03-21 07:42] LABS: ANION GAP 8 MEQ/L (2-14); SAMPLE HEMOLYSIS CHECK 0; SAMPLE ICTERIC CHECK 0; SAMPLE LIPEMIA CHECK 0
[2017-03-21 07:47] LABS: GFR ESTIMATE (CALCULATED) 31 mL/min/; GLUCOSE 122 mg/dL (70-99); UREA NITROGEN (BUN) 16 mg/dL (9-23); URIC ACID 6.8 mg/dL (3.1-9.2)
[2017-03-21 07:49] LABS: ANION GAP 7 MEQ/L (2-14); GFR ESTIMATE (CALCULATED) 30 mL/min/; GLUCOSE 127 mg/dL (70-99); SAMPLE HEMOLYSIS CHECK 0; SAMPLE ICTERIC CHECK 0; SAMPLE LIPEMIA CHECK 0; UREA NITROGEN (BUN) 16 mg/dL (9-23)
[2017-03-21 08:14] VITALS: BP 130/78
[2017-03-21 11:31] LABS: POINT-OF-CARE METER ID UU14208753
[2017-03-21 15:40] VITALS: BP 133/78
[2017-03-21 16:53] LABS: POINT-OF-CARE METER ID UU14208753
[2017-03-21 19:46] VITALS: BP 172/83
[2017-03-21 22:01] LABS: POINT-OF-CARE METER ID UU14208753
[2017-03-21 23:26] VITALS: BP 172/85
[2017-03-22] VITALS (7 sets, daily range): BP systolic 125–177; BP diastolic 64–82
[2017-03-22 06:44] LABS: HEMATOCRIT 26.4 % (38.0-50.0); MCH 31.5 PG (29.0-34.0); MCHC 32.6 G/DL (30.0-36.0); MCV 96.7 FL (86-99); MEAN PLAT.VOLUME 9.8 uM^3 (9.0-12.4); PLATELET COUNT 439 K/uL (156-360); RBC DIS.WIDTH-CV 15.7 % (11.8-14.6); RBC DIS.WIDTH-SD 55.2 % (39-53); RED BLOOD COUNT 2.73 M/uL (4.00-5.50); WHITE BLOOD COUNT 6.4 K/uL (4.1-10.2)
[2017-03-22 06:52] LABS: POINT-OF-CARE METER ID UU14188577
[2017-03-22 07:14] LABS: ANION GAP 10 MEQ/L (2-14); ANION GAP 11 MEQ/L (2-14); CHLORIDE 107 MEQ/L (99-109); CHLORIDE 108 MEQ/L (99-109); GFR ESTIMATE (CALCULATED) 33 mL/min/; GLUCOSE 101 mg/dL (70-99); GLUCOSE 99 mg/dL (70-99); POTASSIUM 4.2 MEQ/L (3.7-5.4); SAMPLE HEMOLYSIS CHECK 0; SAMPLE ICTERIC CHECK 0; SAMPLE LIPEMIA CHECK 0; SODIUM 143 MEQ/L (136-147); UREA NITROGEN (BUN) 13 mg/dL (9-23)
[2017-03-22 11:13] LABS: POINT-OF-CARE METER ID UU14188577
[2017-03-22 22:15] LABS: POINT-OF-CARE METER ID UU14117124
[2017-03-23 00:11] VITALS: BP 143/71
[2017-03-23 03:52] VITALS: BP 133/80
[2017-03-23 07:59] VITALS: BP 141/75
[2017-03-23 11:55] VITALS: BP 124/64
[2017-03-23 12:05] LABS: POINT-OF-CARE METER ID UU14208753
[2017-03-23 14:09] LABS: ANION GAP 10 MEQ/L (2-14); CHLORIDE 105 MEQ/L (99-109); GFR ESTIMATE (CALCULATED) 37 mL/min/; GLUCOSE 91 mg/dL (70-99); POTASSIUM 3.7 MEQ/L (3.7-5.4); SAMPLE HEMOLYSIS CHECK 0; SAMPLE ICTERIC CHECK 0; SAMPLE LIPEMIA CHECK 0; SODIUM 147 MEQ/L (136-147); UREA NITROGEN (BUN) 15 mg/dL (9-23)
[2017-03-23 16:03] VITALS: BP 134/70
[2017-03-23 16:21] LABS: POINT-OF-CARE METER ID UU14117124
[2017-03-23 20:52] VITALS: BP 158/80
[2017-03-23 22:00] LABS: POINT-OF-CARE METER ID UU14188577
[2017-03-24] VITALS (7 sets, daily range): BP systolic 120–158; BP diastolic 42–80
[2017-03-24 06:42] LABS: HEMATOCRIT 28.1 % (38.0-50.0); MCH 30.6 PG (29.0-34.0); MCV 95.6 FL (86-99); MEAN PLAT.VOLUME 9.7 uM^3 (9.0-12.4); PLATELET COUNT 405 K/uL (156-360); RBC DIS.WIDTH-CV 15.1 % (11.8-14.6); RED BLOOD COUNT 2.94 M/uL (4.00-5.50)
[2017-03-24 06:48] LABS: POINT-OF-CARE METER ID UU14117124
[2017-03-24 07:11] LABS: ANION GAP 11 MEQ/L (2-14); CHLORIDE 102 MEQ/L (99-109); GFR ESTIMATE (CALCULATED) 37 mL/min/; GLUCOSE 85 mg/dL (70-99); POTASSIUM 3.6 MEQ/L (3.7-5.4); SAMPLE HEMOLYSIS CHECK 0; SAMPLE ICTERIC CHECK 0; SAMPLE LIPEMIA CHECK 0; SODIUM 144 MEQ/L (136-147); UREA NITROGEN (BUN) 14 mg/dL (9-23)
[2017-03-24 08:29] LABS: MAGNESIUM 1.1 mg/dl (1.3-2.7)
[2017-03-24 12:39] LABS: POINT-OF-CARE METER ID UU14208753
[2017-03-24 21:42] LABS: POINT-OF-CARE METER ID UU14188577
[2017-03-25] VITALS: BP 139/72
[2017-03-25 04:12] VITALS: BP 179/80
[2017-03-25 06:14] LABS: POINT-OF-CARE METER ID UU14208753
[2017-03-25 07:53] VITALS: BP 120/58
[2017-03-25 08:31] LABS: HEMATOCRIT 31.1 % (38.0-50.0); MCH 30.4 PG (29.0-34.0); MCHC 31.8 G/DL (30.0-36.0); MCV 95.4 FL (86-99); MEAN PLAT.VOLUME 9.2 uM^3 (9.0-12.4); PLATELET COUNT 373 K/uL (156-360); RBC DIS.WIDTH-CV 14.7 % (11.8-14.6); RED BLOOD COUNT 3.26 M/uL (4.00-5.50)
[2017-03-25 09:04] LABS: ANION GAP 15 MEQ/L (2-14); CHLORIDE 104 MEQ/L (99-109); GFR ESTIMATE (CALCULATED) 44 mL/min/; GLUCOSE 79 mg/dL (70-99); POTASSIUM 4.1 MEQ/L (3.7-5.4); SAMPLE HEMOLYSIS CHECK 0; SAMPLE ICTERIC CHECK 0; SAMPLE LIPEMIA CHECK 0; SODIUM 146 MEQ/L (136-147); UREA NITROGEN (BUN) 12 mg/dL (9-23)
[2017-03-25 09:08] LABS: MAGNESIUM 2.2 mg/dl (1.3-2.7)
[2017-03-25 11:14] LABS: POINT-OF-CARE METER ID UU14117124
[2017-03-25 11:21] VITALS: BP 143/73
[2017-03-25 15:21] VITALS: BP 100/57
[2017-03-25 16:15] LABS: POINT-OF-CARE METER ID UU14117124
[2017-03-25 19:27] VITALS: BP 141/64
[2017-03-26 00:01] VITALS: BP 147/74
[2017-03-26 07:23] LABS: ANION GAP 8 MEQ/L (2-14); CHLORIDE 101 MEQ/L (99-109); GFR ESTIMATE (CALCULATED) 44 mL/min/; GLUCOSE 97 mg/dL (70-99); POTASSIUM 3.5 MEQ/L (3.7-5.4); SAMPLE HEMOLYSIS CHECK 0; SAMPLE ICTERIC CHECK 0; SAMPLE LIPEMIA CHECK 0; SODIUM 140 MEQ/L (136-147); UREA NITROGEN (BUN) 11 mg/dL (9-23)
[2017-03-26 07:58] VITALS: BP 160/73
[2017-03-26 11:22] LABS: POINT-OF-CARE METER ID UU14188577
[2017-03-26 11:26] VITALS: BP 134/65
[2017-03-26 15:30] VITALS: BP 130/68
[2017-03-26 16:15] LABS: POINT-OF-CARE METER ID UU14188577
[2017-03-26 19:55] VITALS: BP 126/60
[2017-03-26 22:04] LABS: POINT-OF-CARE METER ID UU14208753
[2017-03-27 00:12] VITALS: BP 130/58
[2017-03-27 04:15] VITALS: BP 123/60
[2017-03-27 06:01] LABS: POINT-OF-CARE METER ID UU14208753
[2017-03-27 08:16] VITALS: BP 106/58
[2017-03-27 12:03] VITALS: BP 120/72
[2017-03-27 12:10] LABS: POINT-OF-CARE METER ID UU14188577
[2017-03-27 15:55] VITALS: BP 118/68
[2017-03-27 16:15] LABS: POINT-OF-CARE METER ID UU14208753
[2017-03-27 21:27] LABS: POINT-OF-CARE METER ID UU14208753
[2017-03-27 23:44] VITALS: BP 120/67
[2017-03-28 06:32] LABS: POINT-OF-CARE METER ID UU14117124
[2017-03-28 07:43] VITALS: BP 150/82
[2017-03-28 11:42] LABS: POINT-OF-CARE METER ID UU14208753
[2017-03-28 16:11] VITALS: BP 102/68
[2017-03-28 16:40] LABS: POINT-OF-CARE METER ID UU14117124
[2017-03-28 21:34] LABS: POINT-OF-CARE METER ID UU14208753
[2017-03-28 23:38] VITALS: BP 152/75
[2017-03-29 06:12] LABS: POINT-OF-CARE METER ID UU14117124
[2017-03-29 08:40] VITALS: BP 152/77; BP 164/84
[2017-03-29 11:25] LABS: POINT-OF-CARE METER ID UU14208753
[2017-03-29 16:56] VITALS: BP 151/67
[2017-03-30 00:01] VITALS: BP 139/72
[2017-03-30 06:34] LABS: POINT-OF-CARE METER ID UU14117124
[2017-03-30 08:36] VITALS: BP 137/68
[2017-03-30 09:42] LABS: HEMATOCRIT 31.9 % (38.0-50.0); MCH 31.2 PG (29.0-34.0); MCHC 32.6 G/DL (30.0-36.0); MCV 95.8 FL (86-99); MEAN PLAT.VOLUME 9.3 uM^3 (9.0-12.4); PLATELET COUNT 273 K/uL (156-360); RBC DIS.WIDTH-CV 14.7 % (11.8-14.6); RBC DIS.WIDTH-SD 50.8 % (39-53); RED BLOOD COUNT 3.33 M/uL (4.00-5.50); WHITE BLOOD COUNT 6.2 K/uL (4.1-10.2)
[2017-03-30 10:04] LABS: ANION GAP 7 MEQ/L (2-14); CHLORIDE 101 MEQ/L (99-109); GFR ESTIMATE (CALCULATED) 51 mL/min/; GLUCOSE 101 mg/dL (70-99); POTASSIUM 4.5 MEQ/L (3.7-5.4); SAMPLE HEMOLYSIS CHECK 0; SAMPLE ICTERIC CHECK 0; SAMPLE LIPEMIA CHECK 0; SODIUM 139 MEQ/L (136-147); UREA NITROGEN (BUN) 14 mg/dL (9-23)
[2017-03-30 12:23] VITALS: BP 140/76
[2017-03-30 17:01] VITALS: BP 130/62
[2017-03-30 21:26] LABS: POINT-OF-CARE METER ID UU14208753
[2017-03-30 23:54] VITALS: BP 111/68
[2017-03-31 06:40] LABS: POINT-OF-CARE METER ID UU14208753
[2017-03-31 08:23] VITALS: BP 125/70; BP 15/70
[2017-03-31 11:34] LABS: POINT-OF-CARE METER ID UU14117124
[2017-03-31] MEDS ORDERED: TOPROL XL50 MG PO (12:56)
[2017-03-31] MEDS ORDERED: VITAMIN D2000 UNI1 PO (12:56)
[2017-03-31] MEDS ORDERED: VITAMIN B-1100 MG PO (12:56)
[2017-03-31] MEDS ORDERED: COGENTIN0.5 MG PO (12:56)
[2017-03-31] MEDS ORDERED: FOLIC ACID1 MG PO (12:56)
[2017-03-31] MEDS ORDERED: ENDOCET 5-3251 EACH PO (12:56)
[2017-03-31] MEDS ORDERED: LIPITOR40 MG PO (12:56)
[2017-03-31] MEDS ORDERED: CARDIZEM CD180 MG PO (12:56)
[2017-03-31] MEDS ORDERED: PROTONIX40 MG PO (12:56)
[2017-03-31] MEDS ORDERED: VENLAFAXINE HCL75 M3 PO (12:56)
[2017-03-31] MEDS ORDERED: ASPIR 8181 M1 PO (12:56)
[2017-03-31] MEDS ORDERED: LINEZOLID600 MG PO (12:56)
[2017-03-31] MEDS ORDERED: HALDOL5 MG PO (12:56)
[2017-03-31] MEDS ORDERED: OYSTER SHELL 51 EACH PO (12:56)
== END 2017-03-31 17:59 | disposition home health service (06) | DRG 853 ==
LOC: EME 17:27 → 5SOUTH 22:30 → 3EAST 22:30 → 4EAST 22:30 → EDOF 22:30 → ENRESERV 22:31 → EDOF 03-14 00:14 → ENRESERV 03-14 00:16 → 5SOUTH 03-14 00:17 → ENRESERV 03-15 23:36 → 4WEST 03-16 00:25 → ENRESERV 03-16 10:25 → 4EAST 03-16 12:07 → ENRESERV 03-18 14:28 → 3EAST 03-18 17:29
PROVIDERS: Emergency Medicine; Hospitalist; Internal Medicine; Internal Medicine Nephrology; Nurse Practitioner Adult Health; Physician Assistant; Surgery
DX: A41.02 Sepsis due to Methicillin resistant Staphylococcus aureus (principal); R65.21 Severe sepsis with septic shock; L02.413 Cutaneous abscess of right upper limb; L02.414 Cutaneous abscess of left upper limb; L03.113 Cellulitis of right upper limb; L03.114 Cellulitis of left upper limb; M72.6 Necrotizing fasciitis; G93.41 Metabolic encephalopathy; F10.231 Alcohol dependence with withdrawal delirium; N17.9 Acute kidney failure, unspecified; T36.8X5A Adverse effect of other systemic antibiotics, initial encounter; D62 Acute posthemorrhagic anemia; E87.0 Hyperosmolality and hypernatremia; E83.42 Hypomagnesemia; E83.51 Hypocalcemia; F10.229 Alcohol dependence with intoxication, unspecified; Y90.6 Blood alcohol level of 120-199 mg/100 ml; E86.0 Dehydration; E87.2 Acidosis; E87.6 Hypokalemia; R19.5 Other fecal abnormalities; M62.82 Rhabdomyolysis; E11.621 Type 2 diabetes mellitus with foot ulcer; L97.509 Non-pressure chronic ulcer of other part of unspecified foot with unspecified severity; J45.909 Unspecified asthma, uncomplicated; I10 Essential (primary) hypertension; K21.9 Gastro-esophageal reflux disease without esophagitis; B18.2 Chronic viral hepatitis C; E55.9 Vitamin D deficiency, unspecified; E78.5 Hyperlipidemia, unspecified; I48.0 Paroxysmal atrial fibrillation; F41.9 Anxiety disorder, unspecified; F31.9 Bipolar disorder, unspecified; S91.102A Unspecified open wound of left great toe without damage to nail, initial encounter; S91.105A Unspecified open wound of left lesser toe(s) without damage to nail, initial encounter; S91.104A Unspecified open wound of right lesser toe(s) without damage to nail, initial encounter; S71.001A Unspecified open wound, right hip, initial encounter; S21.201A Unspecified open wound of right back wall of thorax without penetration into thoracic cavity, initial encounter; W19.XXXA Unspecified fall, initial encounter; Y92.009 Unspecified place in unspecified non-institutional (private) residence as the place of occurrence of the external cause; Z87.891 Personal history of nicotine dependence; Z79.82 Long term (current) use of aspirin; Z91.14 Patient's other noncompliance with medication regimen; Z91.81 History of falling
CPT/HCPCS: 70450; 71250; 72125; 74176; 76770; 80047; 80048; 80048 91; 80053; 80069; 80202; 81003; 82040; 82272; 82306; 82330; 82436; 82550; 82570; 82948; 83605; 83735; 84100; 84156; 84300; 84540; 84550; 85014; 85018; 85025; 85027; 86160; 86850; 86900; 86901; 86920; 87040; 87077; 87086; 87186; 87641; 87801; 89190; 93005; 97530 GP; 99281; 99285; C9113; G0480; J0330; J0610; J0690; J0696; J1100; J1170; J1644; J1815; J2060; J2250; J2270; J2405; J2543; J3010; J3370; J3411; J3475; J3480; J7030; J7040; J7050; J7070; J7120; P9016; S0020

== ENCOUNTER → 2017-04-04 18:46 | Emergency (ER) | payer OTHER ==
[~2017-04-04] VITALS: Ht 190.5 cm; Wt 79.7 kg
[~2017-04-04 18:46] MED LIST changes: +CARDIZEM CD180 MG PO; +COGENTIN0.5 MG PO; +HALDOL5 MG PO; +LATUDA40 MG PO; +LINEZOLID600 MG PO; +NALTREXONE HCL50 MG PO; +ONE DAILY1 EAC3 PO; +OYSTER SHELL 51 EACH PO; +SEROQUEL XR50 MG PO; +TOPROL XL50 MG PO; +VENLAFAXINE HCL75 M3 PO; +VITAMIN D2000 UNI1 PO; +ZOLOFT50 MG PO
[2017-04-04 19:16] VITALS: BP 130/68
== END | disposition left against medical advice (07) ==
LOC: EME 18:46
DX: Z53.21 Procedure and treatment not carried out due to patient leaving prior to being seen by health care provider (principal)
CPT/HCPCS: 99281; 99283

== ENCOUNTER 2017-04-10 17:10 | Emergency (ER) | payer OTHER ==
[~2017-04-10] VITALS: Ht 190.5 cm; Wt 80.0 kg
[2017-04-10 17:32] VITALS: BP 130/102
== END 2017-04-10 20:31 | disposition left against medical advice (07) ==
LOC: EME 17:10
DX: S41.101A Unspecified open wound of right upper arm, initial encounter (principal); S41.102A Unspecified open wound of left upper arm, initial encounter; X58.XXXA Exposure to other specified factors, initial encounter; F10.99 Alcohol use, unspecified with unspecified alcohol-induced disorder; Z53.21 Procedure and treatment not carried out due to patient leaving prior to being seen by health care provider

== ENCOUNTER 2017-04-12 00:36 | Inpatient (IN) | payer OTHER ==
[~2017-04-12] VITALS: Ht 190.5 cm; Wt 81.1 kg
[2017-04-12 01:44] LABS: EOSINOPHIL (%) 0.6 % (0-5); EOSINOPHIL COUNT 0.1 K/uL (0-0.3); HEMATOCRIT 28.7 % (38.0-50.0); IMMATURE GRANULOCYTE (%) 0.1 % (0.0-0.7); INSTRUMENT ABS NEUTROPHIL CT 4.3 K/uL; LYMPHOCYTE COUNT 2.8 K/uL (1.0-2.8); MCH 30.4 PG (29.0-34.0); MCHC 32.4 G/DL (30.0-36.0); MCV 93.8 FL (86-99); MEAN PLAT.VOLUME 8.9 uM^3 (9.0-12.4); MONOCYTE (%) 9.4 % (3-12); MONOCYTE COUNT 0.8 K/uL (0-0.8); NEUTROPHIL COUNT 4.3 K/uL (1.8-6.4); PLATELET COUNT 305 K/uL (156-360); RBC DIS.WIDTH-CV 16.6 % (11.8-14.6); RBC DIS.WIDTH-SD 57.3 % (39-53); RED BLOOD COUNT 3.06 M/uL (4.00-5.50)
[2017-04-12 01:59] LABS: CHLORIDE 104 mEq/L (99-109); POTASSIUM 3.9 mEq/L (3.7-5.4); SODIUM 145 mEq/L (136-147)
[2017-04-12 02:01] LABS: GLUCOSE 118 mg/dL (70-99)
[2017-04-12 02:02] LABS: ANION GAP 15 MEQ/L (2-14)
[2017-04-12 02:03] LABS: TOTAL BILIRUBIN 0.4 mg/dL (0.0-1.0)
[2017-04-12 02:04] LABS: SERUM ETHYL ALCOHOL 321 mg/dL
[2017-04-12 02:05] LABS: ALKALINE PHOSPHATASE 116 IU/L (3-129); GFR ESTIMATE (CALCULATED) > 59 mL/min/
[2017-04-12 02:06] LABS: UREA NITROGEN (BUN) 7 mg/dL (9-23)
[2017-04-12 02:14] LABS: TROP-I INTERPRETATION NEGATIVE; TROPONIN-I 0.01 ng/mL (0.0-0.30)
[2017-04-12 03:47] LABS: ADD MIUA? NO; BILIRUBIN NEGATIVE; BLOOD NEGATIVE; COLOR YELLOW ((YELLOW)); GLUCOSE (STRIP) NEGATIVE; KETONES NEGATIVE; LEUKOCYTES NEGATIVE; NITRITE NEGATIVE; PROTEIN (STRIP) NEGATIVE; SPECIFIC GRAVITY 1.009 (1.000-1.030); UCUL ADDED? NO; UROBILINOGEN 0.2 MG/DL (0.2-1.0)
[2017-04-12 07:37] LABS: MAGNESIUM 1.3 mg/dL (1.3-2.7)
[2017-04-12 15:01] VITALS: BP 144/71
[2017-04-12 19:40] VITALS: BP 120/67
[2017-04-12 23:55] VITALS: BP 118/63
[2017-04-13 03:55] VITALS: BP 122/66
[2017-04-13 06:13] LABS: HEMATOCRIT 25.9 % (38.0-50.0); MCHC 31.3 G/DL (30.0-36.0); MCV 95.9 FL (86-99); RBC DIS.WIDTH-CV 16.3 % (11.8-14.6); RBC DIS.WIDTH-SD 57.1 % (39-53); WHITE BLOOD COUNT 5.9 K/uL (4.1-10.2)
[2017-04-13 06:32] LABS: ANION GAP 10 MEQ/L (2-14); CHLORIDE 103 MEQ/L (99-109); GFR ESTIMATE (CALCULATED) > 59 mL/min/; GLUCOSE 101 mg/dL (70-99); POTASSIUM 3.4 MEQ/L (3.7-5.4); SAMPLE HEMOLYSIS CHECK 0; SAMPLE ICTERIC CHECK 0; SAMPLE LIPEMIA CHECK 0; SODIUM 138 MEQ/L (136-147); UREA NITROGEN (BUN) 7 mg/dL (9-23)
[2017-04-13 06:54] LABS: MEAN PLAT.VOLUME 9.4 uM^3 (9.0-12.4); PLAT.SUFFICIENCY ADEQUATE
[2017-04-13 06:57] LABS: PLATELET COUNT 209 K/uL (156-360)
[2017-04-13 07:35] VITALS: BP 139/72
[2017-04-13] MEDS ORDERED: LATUDA80 MG PO (11:53)
[2017-04-13] MEDS ORDERED: PROTONIX40 MG PO (11:54)
[2017-04-13] MEDS ORDERED: CALCIUM 600 +1 EAC2 PO (11:54)
[2017-04-13 15:22] VITALS: BP 127/73
[2017-04-13 23:42] VITALS: BP 185/82
[2017-04-14 05:56] LABS: HEMATOCRIT 24.6 % (38.0-50.0); MCHC 33.3 G/DL (30.0-36.0); MCV 96.1 FL (86-99); MEAN PLAT.VOLUME 9.7 uM^3 (9.0-12.4); PLATELET COUNT 187 K/uL (156-360); RBC DIS.WIDTH-CV 16.5 % (11.8-14.6); RBC DIS.WIDTH-SD 56.8 % (39-53); RED BLOOD COUNT 2.56 M/uL (4.00-5.50); WHITE BLOOD COUNT 4.9 K/uL (4.1-10.2)
[2017-04-14 06:24] LABS: ERTH.SED.RATE 23 MM/HR (0-20)
[2017-04-14 06:55] LABS: ANION GAP 10 MEQ/L (2-14); C-REACTIVE PROTEIN 13.4 MG/L (0-10); CHLORIDE 107 MEQ/L (99-109); GFR ESTIMATE (CALCULATED) > 59 mL/min/; GLUCOSE 79 mg/dL (70-99); MAGNESIUM 0.8 mg/dl (1.3-2.7); POTASSIUM 3.7 MEQ/L (3.7-5.4); SAMPLE HEMOLYSIS CHECK 0; SAMPLE ICTERIC CHECK 0; SAMPLE LIPEMIA CHECK 0; SODIUM 141 MEQ/L (136-147); UREA NITROGEN (BUN) 6 mg/dL (9-23)
[2017-04-14 07:48] VITALS: BP 179/83
[2017-04-14 11:00] VITALS: BP 145/90
[2017-04-14 16:07] VITALS: BP 162/74
[2017-04-15 00:20] VITALS: BP 164/81
[2017-04-15 06:17] LABS: HEMATOCRIT 29.7 % (38.0-50.0); MCH 31.3 PG (29.0-34.0); MCV 94.9 FL (86-99); MEAN PLAT.VOLUME 9.5 uM^3 (9.0-12.4); PLATELET COUNT 192 K/uL (156-360); RBC DIS.WIDTH-CV 16.9 % (11.8-14.6); RBC DIS.WIDTH-SD 55.4 % (39-53); RED BLOOD COUNT 3.13 M/uL (4.00-5.50); WHITE BLOOD COUNT 4.7 K/uL (4.1-10.2)
[2017-04-15 06:46] LABS: ANION GAP 16 MEQ/L (2-14); CHLORIDE 104 MEQ/L (99-109); GFR ESTIMATE (CALCULATED) > 59 mL/min/; GLUCOSE 79 mg/dL (70-99); POTASSIUM 3.5 MEQ/L (3.7-5.4); SAMPLE HEMOLYSIS CHECK 0; SAMPLE ICTERIC CHECK 0; SAMPLE LIPEMIA CHECK 0; SODIUM 142 MEQ/L (136-147); UREA NITROGEN (BUN) 4 mg/dL (9-23)
[2017-04-15 06:52] LABS: MAGNESIUM 1.4 mg/dl (1.3-2.7)
[2017-04-15 06:53] LABS: VANCOMYCIN, TROUGH 9.7 MCG/ML (10-20)
[2017-04-15 07:00] VITALS: BP 152/64
[2017-04-15 15:00] VITALS: BP 159/80
[2017-04-15 23:40] VITALS: BP 135/75
[2017-04-16 06:00] LABS: EOSINOPHIL (%) 1.6 % (0-5); EOSINOPHIL COUNT 0.1 K/uL (0-0.3); HEMATOCRIT 29.8 % (38.0-50.0); IMMATURE GRANULOCYTE (%) 0.4 % (0.0-0.7); INSTRUMENT ABS NEUTROPHIL CT 3.3 K/uL; LYMPHOCYTE COUNT 1.7 K/uL (1.0-2.8); MCH 31.6 PG (29.0-34.0); MCHC 32.9 G/DL (30.0-36.0); MCV 96.1 FL (86-99); MEAN PLAT.VOLUME 9.5 uM^3 (9.0-12.4); MONOCYTE (%) 9.6 % (3-12); MONOCYTE COUNT 0.5 K/uL (0-0.8); NEUTROPHIL (%) 58.2 % (45-76); NEUTROPHIL COUNT 3.3 K/uL (1.8-6.4); PLATELET COUNT 181 K/uL (156-360); RBC DIS.WIDTH-CV 17.7 % (11.8-14.6); RBC DIS.WIDTH-SD 59.1 % (39-53); WHITE BLOOD COUNT 5.6 K/uL (4.1-10.2)
[2017-04-16 06:31] LABS: ALKALINE PHOSPHATASE 82 IU/L (3-129); ANION GAP 10 MEQ/L (2-14); CHLORIDE 105 MEQ/L (99-109); GFR ESTIMATE (CALCULATED) > 59 mL/min/; GLUCOSE 117 mg/dL (70-99); MAGNESIUM 1.3 mg/dl (1.3-2.7); POTASSIUM 3.6 MEQ/L (3.7-5.4); SAMPLE HEMOLYSIS CHECK 0; SAMPLE ICTERIC CHECK 0; SAMPLE LIPEMIA CHECK 0; SODIUM 141 MEQ/L (136-147); TOTAL BILIRUBIN 0.3 MG/DL (0.0-1.0); UREA NITROGEN (BUN) 7 mg/dL (9-23)
[2017-04-16 07:51] VITALS: BP 148/80
[2017-04-17 00:18] VITALS: BP 138/80
[2017-04-17 06:21] LABS: HEMATOCRIT 31.8 % (38.0-50.0); MCHC 32.1 G/DL (30.0-36.0); MCV 96.7 FL (86-99); MEAN PLAT.VOLUME 9.2 uM^3 (9.0-12.4); PLATELET COUNT 209 K/uL (156-360); RBC DIS.WIDTH-CV 18.2 % (11.8-14.6); RBC DIS.WIDTH-SD 63.4 % (39-53); RED BLOOD COUNT 3.29 M/uL (4.00-5.50); WHITE BLOOD COUNT 5.7 K/uL (4.1-10.2)
[2017-04-17 06:45] LABS: ANION GAP 10 MEQ/L (2-14); CHLORIDE 109 MEQ/L (99-109); GFR ESTIMATE (CALCULATED) > 59 mL/min/; GLUCOSE 98 mg/dL (70-99); MAGNESIUM 1.2 mg/dl (1.3-2.7); SAMPLE HEMOLYSIS CHECK 0; SAMPLE ICTERIC CHECK 0; SAMPLE LIPEMIA CHECK 0; SODIUM 145 MEQ/L (136-147); UREA NITROGEN (BUN) 8 mg/dL (9-23)
[2017-04-17 07:55] VITALS: BP 127/74
[2017-04-17 16:00] VITALS: BP 122/72
[2017-04-17 23:36] VITALS: BP 119/67
[2017-04-18 06:29] LABS: ALKALINE PHOSPHATASE 67 IU/L (3-129); ANION GAP 10 MEQ/L (2-14); CHLORIDE 108 MEQ/L (99-109); GFR ESTIMATE (CALCULATED) > 59 mL/min/; GLUCOSE 88 mg/dL (70-99); POTASSIUM 3.6 MEQ/L (3.7-5.4); SAMPLE HEMOLYSIS CHECK 0; SAMPLE ICTERIC CHECK 0; SAMPLE LIPEMIA CHECK 0; SODIUM 143 MEQ/L (136-147); TOTAL BILIRUBIN 0.3 MG/DL (0.0-1.0); UREA NITROGEN (BUN) 8 mg/dL (9-23)
[2017-04-18 07:00] VITALS: BP 127/88
[2017-04-18 15:11] VITALS: BP 106/64
[2017-04-19 00:29] VITALS: BP 123/69
[2017-04-19 08:06] VITALS: BP 135/75
[2017-04-19] MEDS ORDERED: VANCOMYCIN1.25 GM/25 IV (11:27)
[2017-04-19 15:16] VITALS: BP 125/73
== END 2017-04-19 17:48 | DRG 897 ==
LOC: EME 00:36 → 5SOUTH 05:40 → EDOF 05:40 → ENRESERV 05:45 → 5SOUTH 14:35
PROVIDERS: Emergency Medicine; Hospitalist; Student in an Organized Health Care Education/Training Program
DX: F10.121 Alcohol abuse with intoxication delirium (principal); F10.231 Alcohol dependence with withdrawal delirium; K21.9 Gastro-esophageal reflux disease without esophagitis; I10 Essential (primary) hypertension; B18.2 Chronic viral hepatitis C; B95.62 Methicillin resistant Staphylococcus aureus infection as the cause of diseases classified elsewhere; L02.414 Cutaneous abscess of left upper limb; L02.413 Cutaneous abscess of right upper limb; E78.00 Pure hypercholesterolemia, unspecified; F32.9 Major depressive disorder, single episode, unspecified; E87.6 Hypokalemia; I48.91 Unspecified atrial fibrillation; F10.229 Alcohol dependence with intoxication, unspecified; Y90.8 Blood alcohol level of 240 mg/100 ml or more; L03.113 Cellulitis of right upper limb; L03.114 Cellulitis of left upper limb; E78.5 Hyperlipidemia, unspecified; Z62.810 Personal history of physical and sexual abuse in childhood; F17.210 Nicotine dependence, cigarettes, uncomplicated; Z79.899 Other long term (current) drug therapy; Z91.14 Patient's other noncompliance with medication regimen; Z79.82 Long term (current) use of aspirin; Z23 Encounter for immunization; E83.42 Hypomagnesemia; Z81.8 Family history of other mental and behavioral disorders; E11.9 Type 2 diabetes mellitus without complications; J44.9 Chronic obstructive pulmonary disease, unspecified
CPT/HCPCS: 80048; 80053; 80202; 81003; 83735; 84100; 84484; 85025; 85027; 85651; 86140; 90686; 93005; 99281; 99285; G0480; J1644; J2060; J3370; J3411; J3475; J7030; J7042; J7050

== ENCOUNTER 2017-05-04 14:52 | Emergency (ER) | payer OTHER ==
[~2017-05-04] VITALS: Ht 190.5 cm; Wt 80.3 kg
[~2017-05-04 14:52] MED LIST changes: +CALCIUM 600 +1 EAC2 PO; +LATUDA80 MG PO; +VANCOMYCIN1.25 GM/25 IV
[2017-05-04 19:28] VITALS: BP 142/90
== END 2017-05-04 19:29 | disposition home or self-care (01) ==
LOC: EME 14:52
DX: F10.129 Alcohol abuse with intoxication, unspecified (principal); J45.909 Unspecified asthma, uncomplicated; E78.5 Hyperlipidemia, unspecified; I10 Essential (primary) hypertension; F32.9 Major depressive disorder, single episode, unspecified; K21.9 Gastro-esophageal reflux disease without esophagitis; F41.9 Anxiety disorder, unspecified; B19.20 Unspecified viral hepatitis C without hepatic coma
CPT/HCPCS: 70450; 99281; 99283

== ENCOUNTER 2017-05-08 19:46 | Emergency (ER) | payer OTHER ==
[~2017-05-08] VITALS: Ht 190.5 cm; Wt 81.8 kg
[2017-05-08 20:37] VITALS: BP 147/96
== END 2017-05-08 21:14 | disposition left against medical advice (07) ==
LOC: EME 19:46
DX: Z53.21 Procedure and treatment not carried out due to patient leaving prior to being seen by health care provider (principal)

== ENCOUNTER 2017-06-03 13:04 | Emergency (ER) | payer OTHER ==
[~2017-06-03] VITALS: Ht 190.5 cm; Wt 79.5 kg
[2017-06-03 13:12] VITALS: BP 151/117
== END 2017-06-03 13:30 | disposition left against medical advice (07) ==
LOC: EME 13:04
DX: F10.10 Alcohol abuse, uncomplicated (principal); Z53.21 Procedure and treatment not carried out due to patient leaving prior to being seen by health care provider

== ENCOUNTER 2017-06-04 20:25 | Emergency (ER) | payer OTHER ==
[~2017-06-04] VITALS: Ht 190.5 cm; Wt 79.5 kg
[2017-06-04 23:02] LABS: BASOPHIL (%) 0.5 % (0-1); EOSINOPHIL (%) 0 % (0-5); HEMATOCRIT 38.7 % (38.0-50.0); HEMOGLOBIN 13.2 G/DL (12.5-16.6); IMMATURE GRANULOCYTE (%) 0.2 % (0.0-0.7); LYMPHOCYTE (%) 24.8 % (15-42); MCH 30.3 PG (29.0-34.0); MCHC 34.1 G/DL (30.0-36.0); MONOCYTE COUNT 0.4 K/uL (0-0.8); NEUTROPHIL (%) 69.5 % (45-76); NEUTROPHIL COUNT 5.6 K/uL (1.8-6.4); PLATELET COUNT 159 K/uL (156-360); RBC DIS.WIDTH-CV 14.4 % (11.8-14.6); RBC DIS.WIDTH-SD 46.7 % (39-53); RED BLOOD COUNT 4.35 M/uL (4.00-5.50); WHITE BLOOD COUNT 8.1 K/uL (4.1-10.2)
[2017-06-04 23:10] LABS: CHLORIDE 107 mEq/L (99-109); POTASSIUM 3.3 mEq/L (3.7-5.4); SODIUM 144 mEq/L (136-147)
[2017-06-04 23:11] LABS: GLUCOSE 105 mg/dL (70-99)
[2017-06-04 23:15] LABS: CREATININE 0.8 mg/dL (0.6-1.3); GFR ESTIMATE (CALCULATED) > 59 mL/min/ (58.99-99999)
[2017-06-04 23:16] LABS: UREA NITROGEN (BUN) 7 mg/dL (9-23)
[2017-06-05 05:59] VITALS: BP 144/98
== END 2017-06-05 06:00 | disposition home or self-care (01) ==
LOC: RME 20:25 → EME 20:25 → RME 06-05 06:00
PROVIDERS: Physician Assistant
DX: F10.229 Alcohol dependence with intoxication, unspecified (principal); S09.90XA Unspecified injury of head, initial encounter; S51.002A Unspecified open wound of left elbow, initial encounter; W01.190A Fall on same level from slipping, tripping and stumbling with subsequent striking against furniture, initial encounter; Y92.039 Unspecified place in apartment as the place of occurrence of the external cause; B19.20 Unspecified viral hepatitis C without hepatic coma; K21.9 Gastro-esophageal reflux disease without esophagitis; J45.909 Unspecified asthma, uncomplicated; I10 Essential (primary) hypertension; E78.5 Hyperlipidemia, unspecified; F41.9 Anxiety disorder, unspecified; F32.9 Major depressive disorder, single episode, unspecified; F31.9 Bipolar disorder, unspecified; Z87.891 Personal history of nicotine dependence
CPT/HCPCS: 70450; 72125; 80048; 85025; 99281; 99285